=== PATIENT | female | born 1985 | race Two or more races ===

== ENCOUNTER 2017-08-03 01:59 | Emergency (ER) | payer MEDICAID ==
[~2017-08-03] VITALS: Ht 154.9 cm; Wt 99.8 kg
[2017-08-03 02:11] VITALS: BP 124/80
== END 2017-08-03 03:48 | disposition left against medical advice (07) ==
LOC: ER 02:01
DX: S61.411A Laceration without foreign body of right hand, initial encounter (principal); Z53.21 Procedure and treatment not carried out due to patient leaving prior to being seen by health care provider; X58.XXXA Exposure to other specified factors, initial encounter; Y93.89 Activity, other specified; Y99.8 Other external cause status; Y92.89 Other specified places as the place of occurrence of the external cause